=== PATIENT | female | born 1950 | race Caucasian/White ===

== ENCOUNTER 2017-02-26 05:55 | Emergency (ER) | payer MEDICARE, MEDICAID ==
[~2017-02-26] VITALS: Ht 165.1 cm; Wt 67.0 kg
[~2017-02-26 05:55] MED LIST: ARIP10TA13 PO; LEVO25TA4 PO; OMEP-110 PO; SERT25TA PO
[2017-02-26 05:56] VITALS: BP 124/71
== END 2017-02-26 08:04 | disposition home or self-care (01) ==
LOC: ED 07:50
DX: J20.9 Acute bronchitis, unspecified (principal); L73.9 Follicular disorder, unspecified; J44.9 Chronic obstructive pulmonary disease, unspecified
CPT/HCPCS: 71020; 99284

== ENCOUNTER 2017-12-18 04:59 | Emergency (ER) | payer MEDICARE, MEDICAID ==
[~2017-12-18] VITALS: Ht 165.1 cm; Wt 68.0 kg
[~2017-12-18 04:59] MED LIST changes: -ARIP10TA13 PO; +ARIP10TA33 PO
[2017-12-18 05:04] VITALS: BP 118/62
[2017-12-18] MEDS ORDERED: ALBU18HF INH (05:08)
[2017-12-18] MEDS ORDERED: DEXAMETHASONE 4 MG/ML, 1ML PO ONE (05:30)
[2017-12-18] MEDS ORDERED: DEXAMETHASONE 4 MG TABLET ONE (05:38)
== END 2017-12-18 07:15 | disposition home or self-care (01) ==
LOC: ED 06:19
DX: B34.9 Viral infection, unspecified (principal); F15.10 Other stimulant abuse, uncomplicated; F31.9 Bipolar disorder, unspecified; F17.210 Nicotine dependence, cigarettes, uncomplicated; F20.0 Paranoid schizophrenia; J44.9 Chronic obstructive pulmonary disease, unspecified
CPT/HCPCS: 71046; 99284; J1100